=== PATIENT | female | born 1960 | race Caucasian/White ===

== ENCOUNTER 2017-01-04 22:07 | Emergency (ER) | payer BC ==
[~2017-01-04] VITALS: Ht 172.7 cm; Wt 127.0 kg
[~2017-01-04 22:07] MED LIST: ALPR.5T; ALPR1T PO; ASP325TEC; AZIT500T PO; BLOOD PRESSURE MED; BNZ20T; CEPH500C PO; CPR500T PO; DCS100C PO; ESTR1TAB24 PO; FRSM20T; FURO20TA4 PO; HYDR-2890 PO; IBP800T PO; LASIX; LOSA50TA6 PO; OXYC1TAB19 PO; OXYC1TAB87 PO; PNT40TEC; PNT40TEC PO; [UNRECOGNIZED DRUG - CODE]; [UNRECOGNIZED DRUG - CODE]
--- NOTE | 2017-01-04 22:45 | ED General ---
General Chief Complaint: General Problems/Pain Stated Complaint: NAUSEA, WEAKNESS SINCE TICK BITE Nursing Triage Note: PT REPORTS NAUSEA, LETHARGY, FEVERS, AND WEAKNESS FOR 3 DAYS. PT REPORTS SHE HAD A TICK BITE 2 WEEKS AGO. Nursing Sepsis Screen: Possible Sepsis Risk Source of Information: Patient Exam Limitations: No Limitations History of Present Illness Time Seen by Provider: 22:37 Initial Comments Patient presents to ER by private conveyance with a chief complaint of feeling under the weather for the past week with subjective fevers malaise fatigue no change in weight, occasional nausea without vomiting, constipation and about a week ago she pulled a tick off of herself. She had some itching for about a day but no rash. She's also had no appetite for the past for 5 days. She took a laxative yesterday but didn't get much out. She says the nausea is coming by sweats and the feeling of epigastric pain as well as feeling of aching pain like somebody punched her right and the middle of her sternum. She says she has no coronary history however for [address] Khan, cardiology did a heart catheter on her because she had a positive stress test but told her that her coronaries looked fine. Allergies and Home Medications Allergies Coded Allergies: Sulfa (Sulfonamide Antibiotics) (Verified Allergy, Unknown, 11/01/06) benazepril (Unverified Allergy, Unknown, SWELLING, 07/21/15) carbamazepine (Verified Allergy, Unknown, 11/01/06) cimetidine (Verified Allergy, Unknown, 11/01/06) codeine (Verified Allergy, Unknown, 11/01/06) enalapril (Unverified Allergy, Unknown, SWELLING, 07/21/15) metoprolol (Unverified Allergy, Unknown, SWELLING, RASH, 07/21/15) Home Medications Alprazolam 1 Mg Tablet, 1 TAB PO q8 PRN, (Reported) TAKES FOR ANXIETY Docusate Sodium 100 Mg Capsule, 100 MG PO BID, (Reported) Estradiol 1 Mg Tablet, 1 MG PO DAILY, (Reported) Furosemide 20 Mg Tablet, 1 EACH PO DAILY, (Reported) Ibuprofen 800 Mg Tab, 800 MG PO Q 6HRS NEEDED, (Reported) Losartan Potassium 50 Mg Tablet, 50 MG PO DAILY, (Reported) Oxycodone Hcl/Acetaminophen 1 Tab Tablet, 1 TAB PO Q 4HRS NEEDED, (Reported) Pantoprazole Sod 40 Mg Tab, 40 MG PO DAILY, (Reported) Constitutional: see HPI, chills, fever, malaise EENTM: No ear pain, No eye pain Respiratory: No cough, No short of breath Cardiovascular: No chest pain, No vascular heart diseas Gastrointestinal: abdominal pain (epigastric), constipation, No diarrhea, nausea, No vomiting Genitourinary: No discharge, dysuria, frequency, No hematuria, hesitancy, No incontinence : No Musculoskeletal: No back pain, No joint pain Skin: see HPI, pruritus, No rash Psychiatric/Neurological: Denies Headache, Denies Numbness Past Hqcwesq-Ksbtls-Peeogm Hx Patient Social History Alcohol Use: Rarely Uses Recreational Drug Use: No Smoking Status: Former Smoker Type Used: Cigarettes Former Smoker/When Quit: Jul 02, 2002 Recent Foreign Travel: No Contact w/Someone Who Travel: No Recent Infectious Disease Expo: No Recent Hopitalizations: Yes (HEART CATH 2 YRS AGO) Surgeries HX Surgeries: Yes (r/l knee, colon) Surgeries: Bladder Surgery, Eye Surgery, Hysterectomy, Orthopedic, Tubal Ligation Respiratory Hx Respiratory Disorders: Yes Respiratory Disorders: Emphysema Cardiovascular Hx Cardiac Disorders: Yes Cardiac Disorders: Hypertension Neurological Hx Neurological Disorders: No Reproductive System Hx Reproductive Disorders: No Sexually Transmitted Disease: No Genitourinary Hx Genitourinary Disorders: No Gastrointestinal Hx Gastrointestinal Disorders: Yes Gastrointestinal Disorders: Gastroesophageal Reflux Musculoskeletal Hx Musculoskeletal Disorders: Yes Musculoskeletal Disorders: Arthritis Endocrine Hx Endocrine Disorders: No HEENT HX ENT Disorders: No Cancer Hx Cancer: No Psychosocial Hx Psychiatric Problems: No Integumentary HX Skin/Integumentary Disorder: No Blood Transfusions Hx Blood Disorders: No Adverse Reaction to a Blood Tr: No Physical Exam Vital Signs Vital Sign - Last 12Hours 01/04/17 22:21 Temp 98.4 Pulse 135 Resp 18 B/P (MAP) 141/93 Pulse Ox 94 Capillary Refill : Less Than 3 Seconds General Appearance: No Apparent Distress, WD/WN Eyes: Bilateral Eye EOMI, Bilateral Eye Normal Inspection, Bilateral Eye PERRL HEENT: PERRL/EOMI, TMs Normal, Pharynx Normal Neck: Full Range of Motion, Normal Inspection, Supple Respiratory: Lungs Clear, Normal Breath Sounds Cardiovascular: Regular Rate, Rhythm, No Edema Gastrointestinal: Normal Bowel Sounds, Soft, Tenderness (epigastric), Other ( negative Prescott sign) Back: Normal Inspection, No CVA Tenderness, No Vertebral Tenderness Extremity: Normal Capillary Refill, No Calf Tenderness, No Pedal Edema Neurologic/Psychiatric: Alert, Oriented x3 Skin: Normal Color, Warm/Dry Progress/Results/Core Measures Results/Orders Lab Results Laboratory Tests Test 01/04/17 00:37 01/04/17 22:21 01/04/17 22:26 Range/Units Prothrombin Time 14.4 12.2-14.7 SEC INR Comment 1.2 0.8-1.4 Activated Partial Thromboplast Time 31 24-35 SEC Lactic Acid Level 1.08 0.50-2.00 MMOL/L Urine Color LESLEY H Urine Clarity SLIGHTLY CLOUDY Urine pH 6 5-9 Urine Specific Ruby 1.020 1.016-1.022 Urine Protein 2+ H NEGATIVE Urine Glucose (UA) NEGATIVE NEGATIVE Urine Ketones 1+ H NEGATIVE Urine Nitrite NEGATIVE NEGATIVE Urine Bilirubin 1+ H NEGATIVE Urine Urobilinogen 1 NORMAL MG/DL Urine Leukocyte Esterase 1+ H NEGATIVE Urine RBC (Auto) 1+ H NEGATIVE Urine RBC RARE /HPF Urine WBC 2-5 /HPF Urine Squamous Epithelial Cells 10-25 H /HPF Urine Crystals NONE /LPF Urine Bacteria FEW H /HPF Urine Casts NONE /LPF Urine Mucus LARGE H /LPF Urine Culture Indicated NO White Blood Count 4.3 4.3-11.0 10^3/uL Red Blood Count 4.88 4.35-5.85 10^6/uL Hemoglobin 13.2 11.5-16.0 G/DL Hematocrit 39 35-52 % Mean Corpuscular Volume 81 80-99 FL Mean Corpuscular Hemoglobin 27 25-34 PG Mean Corpuscular Hemoglobin Concent 34 32-36 G/DL Red Cell Distribution Width 15.1 H 10.0-14.5 % Platelet Count 92 L 130-400 10^3/uL Mean Platelet Volume 12.0 H 7.4-10.4 FL Neutrophils (%) (Auto) 82 H 42-75 % Lymphocytes (%) (Auto) 10 L 12-44 % Monocytes (%) (Auto) 8 0-12 % Eosinophils (%) (Auto) 0 0-10 % Basophils (%) (Auto) 1 0-10 % Neutrophils # (Auto) 3.5 1.8-7.8 X 10^3 Lymphocytes # (Auto) 0.4 L 1.0-4.0 X 10^3 Monocytes # (Auto) 0.3 0.0-1.0 X 10^3 Eosinophils # (Auto) 0.0 0.0-0.3 10^3/uL Basophils # (Auto) 0.0 0.0-0.1 10^3/uL Sodium Level 132 L 135-145 MMOL/L Potassium Level 3.5 L 3.6-5.0 MMOL/L Chloride Level 98 98-107 MMOL/L Carbon Dioxide Level 19 L 21-32 MMOL/L Anion Gap 15 H 5-14 MMOL/L Blood Urea Nitrogen 10 7-18 MG/DL Creatinine 0.77 0.60-1.30 MG/DL Estimat Glomerular Filtration Rate > 60 BUN/Creatinine Ratio 13 Glucose Level 174 H 70-105 MG/DL Calcium Level 8.3 L 8.5-10.1 MG/DL Magnesium Level 1.4 L 1.8-2.4 MG/DL Total Bilirubin 1.6 H 0.1-1.0 MG/DL Aspartate Amino Transf (AST/SGOT) 50 H 5-34 U/L Alanine Aminotransferase (ALT/SGPT) 57 H 0-55 U/L Alkaline Phosphatase 87 40-136 U/L Troponin I < 0.30 <0.30 NG/ML C-Reactive Protein High Sensitivity 14.39 H 0.00-0.50 MG/DL Total Protein 6.8 6.4-8.2 GM/DL Albumin 3.7 3.2-4.5 GM/DL My Orders Orders - ISABEL DOWNEY Cbc With Automated Diff (01/04/17 22:46) Comprehensive Metabolic Panel (01/04/17 22:46) Hs C Reactive Protein (01/04/17 22:46) Lactic Acid Analyzer (01/04/17 22:46) Magnesium (01/04/17 22:46) Troponin I (01/04/17 22:46) Ua Culture If Indicated (01/04/17 22:46) Chest Pa/Lat (2 View) (01/04/17 22:46) Abdomen/Kub 1view (01/04/17 22:46) Saline Lock/Iv-Start (01/04/17 22:46) Ns Iv 1000 Ml (Sodium Chloride 0.9%) (01/04/17 22:46) Ondansetron Injection (Zofran Injectio (01/04/17 23:00) Ekg Tracing (01/04/17 23:01) Blood Culture (01/04/17 23:50) Sputum Culture (01/04/17 23:50) Protime With Inr (01/04/17 23:50) Partial Thromboplastin Time (01/04/17 23:50) Saline Lock/Iv-Start (01/04/17 23:50) Vital Signs Adult Sepsis Patie Q1HR (01/04/17 23:50) Remove Rings In Anticipation O (01/04/17 23:50) Ct Abdomen/Pelvis Wo (01/05/17 00:01) Potassium Chloride (Tablet) (K Dur Table (01/05/17 00:45) Magnesium Oxide Tablet (Mag Ox Tablet) (01/05/17 00:45) Medications Given in ED Current Medications Medications Dose Ordered Sig/Autumn Route Start Time Stop Time Status Last Admin Dose Admin Magnesium Oxide 400 mg ONCE ONCE PO 01/05/17 00:45 01/05/17 00:46 DC 01/05/17 01:17 400 MG Ondansetron HCl 4 mg ONCE ONCE IVP 01/04/17 23:00 01/04/17 23:01 DC 01/04/17 23:06 4 MG Potassium Chloride 20 meq ONCE ONCE PO 01/05/17 00:45 01/05/17 00:46 DC 01/05/17 01:17 20 MEQ Sodium Chloride 1,000 ml @ 0 mls/hr Q0M ONCE IV 01/04/17 22:46 01/04/17 22:50 DC 01/04/17 23:06 1,000 MLS/HR Vital Signs/I&O Vital Sign - Last 12Hours 01/04/17 22:21 Temp 98.4 Pulse 135 Resp 18 B/P (MAP) 141/93 Pulse Ox 94 Blood Pressure Mean: 109 Progress Note #1: Time: 23:00 Progress Note Heart catheter was from 2006 was normal with an EF of 60%. She is postmenopausal since then so cannot rule out cardiac. We'll obtain EKG and troponin as well as a chest x-ray. We'll workup for epigastric pain by getting a urinalysis looking for blood work signs of inflammation or infection. If nothing is specific we may get a CAT scan. Progress Note #2: Time: 23:49 Progress Note Patient was a nonspecific symptoms and on lab if she has elevated liver enzymes and bilirubin as well as epigastric pain. We'll get a CT abdomen pelvis. Urine was normal. Platelets are little bit low as well. Concern for hepatitis, subacute? Will have a lactate and blood cultures. Progress Note #3: Time: 01:35 Progress Note Patient's feeling better after the fluids and Zofran. She has CT scan with unremarkable findings. This looks like it could be viral gastritis which may be causing her very marginal elevation in liver enzymes. There is no synthetic dysfunction. We'll give her some Zofran and instructions for oral rehydration and have her follow-up early next week with her primary care physician. ECG Initial ECG Impression Date: Jan 04, 2017 Initial ECG Impression Time: 23:09 Initial ECG Rate: 102 Initial ECG Rhythm: S.Tach Initial ECG Intervals: Normal Initial ECG Impression: Nonspecific Changes Initial ECG Comparisson: Unchanged Comment No T-wave elevation or depression. Diagnostic Imaging Diagonstic Imaging: Xray Plain Films/CT/US/NM/MRI: chest Comments No acute cardiopulmonary processes noted. Reviewed: Reviewed by Me Departure Impression Impression: Primary Impression: Gastritis Qualified Codes: K29.00 - Acute gastritis without bleeding Additional Impressions: Elevated liver enzymes Nausea and vomiting Qualified Codes: R11.2 - Nausea with vomiting, unspecified Disposition: 01 HOME, SELF-CARE Condition: Improved Departure-Patient Inst. Decision time for Depature: 01:37 Referrals: NAINA LOVE MD (PCP/Family) Primary Care Physician Patient Instructions: Viral Gastroenteritis, Adult (DC) Add. Discharge Instructions: You have nonspecific inflammation of your stomach which is causing your nausea. This may also be the cause of your liver enzymes being elevated. I would recommend that early next week you follow up with your primary care physician to close the loop on these findings. In the meanwhile we will give you some Zofran to be used every 6 hours under the tongue as needed for nausea or vomiting. Take at the first sign of nausea. Drink plenty of water or half strength Gatorade. If you're unable to maintain your oral intake or you start having new or worsening symptoms such as high fevers I would like you to come back to the ER. All discharge instructions reviewed with patient and/or family. Voiced understanding. Scripts Ondansetron (Ondansetron Odt) 4 Mg Tab.rapdis 4 MG PO Q6H Y for NAUSEA/VOMITING, #20 TAB 0 Refills Prov: ISABEL DOWNEY 01/05/17 Copy Copies To 1: NAINA LOVE MD, TITUS J Jan 04, 2017 22:44
[2017-01-04 22:56] LABS: BASOPHILS % (AUTO) 1 % (0-10); EOSINOPHILS % (AUTO) 0 % (0-10); LYMPHOCYTES # (AUTO) 0.4 X 10^3 (1.0-4.0); LYMPHOCYTES % (AUTO) 10 % (12-44); MEAN CORPUSCULAR HEMOGLOBIN 27 PG (25-34); MEAN CORPUSCULAR HGB CONC 34 G/DL (32-36); MEAN CORPUSCULAR VOLUME 81 FL (80-99); MONOCYTES # (AUTO) 0.3 X 10^3 (0.0-1.0); MONOCYTES % (AUTO) 8 % (0-12); NEUTROPHILS # (AUTO) 3.5 X 10^3 (1.8-7.8); NEUTROPHILS % (AUTO) 82 % (42-75); PLATELET COUNT 92 10^3/uL (130-400); RED BLOOD COUNT 4.88 10^6/uL (4.35-5.85); RED CELL DISTRIBUTION WIDTH 15.1 % (10.0-14.5); WHITE BLOOD COUNT 4.3 10^3/uL (4.3-11.0)
[2017-01-04 22:58] LABS: KETONES,URINE 1+ (NEGATIVE); LEUKOCYTE ESTERASE ,URINE 1+ (NEGATIVE); NITRITE,URINE NEGATIVE (NEGATIVE); PH,URINE 6 (5-9); PROTEIN,URINE 2+ (NEGATIVE); UROBILINOGEN,URINE 1 MG/DL (NORMAL)
[2017-01-04 23:05] LABS: BILIRUBIN,URINE 1+ (NEGATIVE)
[2017-01-04] MEDS: NS IV 1000 ML 1,000 ML IV ONE (23:06)
[2017-01-04] MEDS: ONDANSETRON 4 MG/2 ML (SDV) Z0FRAN IVP ONE (23:06)
[2017-01-04 23:10] LABS: ALANINE AMINOTRANSFERASE 57 U/L (0-55); ALBUMIN 3.7 GM/DL (3.2-4.5); ANION GAP 15 MMOL/L (5-14); ASPARTATE AMINO TRANSFERASE 50 U/L (5-34); BILIRUBIN,TOTAL 1.6 MG/DL (0.1-1.0); BLOOD UREA NITROGEN 10 MG/DL (7-18); BUN/CREATININE RATIO 13; CALCIUM 8.3 MG/DL (8.5-10.1); CARBON DIOXIDE 19 MMOL/L (21-32); CHLORIDE 98 MMOL/L (98-107); CREATININE SERUM 0.77 MG/DL (0.60-1.30); GFR ESTIMATED > 60; GLUCOSE 174 MG/DL (70-105); MAGNESIUM 1.4 MG/DL (1.8-2.4); POTASSIUM 3.5 MMOL/L (3.6-5.0); SODIUM 132 MMOL/L (135-145); TOTAL PROTEIN 6.8 GM/DL (6.4-8.2); hs C REACTIVE PROTEIN 14.39 MG/DL (0.00-0.50)
[2017-01-04 23:16] LABS: TROPONIN I < 0.30 NG/ML (<0.30)
[2017-01-05 00:54] LABS: INR 1.2 (0.8-1.4); PROTHROMBIN TIME PATIENT 14.4 SEC (12.2-14.7)
[2017-01-05] MEDS: MAGNESIUM OXIDE (MAG-OX)400 MG TAB PO ONE (01:17)
[2017-01-05] MEDS: KCL 20 MEQ TAB (K-DUR) PO ONE (01:17)
[2017-01-05] MEDS ORDERED: ONDA4TAB11 PO (01:39)
[2017-01-05] MEDS: RX-ONDANSETRON 4 MG ODT (ZOFRAN) PPK #4 PO STA (01:42)
[2017-01-05 01:48] VITALS: BP 136/80
--- NOTE | 2017-01-05 06:56 | Diagnostic Imaging Report ---
PROCEDURE: CT abdomen and pelvis without contrast. TECHNIQUE: Multiple contiguous axial images were obtained through the abdomen and pelvis without the use of intravenous contrast. INDICATION: Nausea. Lethargy. Fevers. Weakness. COMPARISON: CT angio chest dated 11/01/2016 FINDINGS: Included views of the lung bases are clear. CT abdomen: Normal appendix is identified. Small bowel loops are nondistended. Liver is diffusely hypodense consistent with background of hepatic steatosis. Otherwise, the liver, kidneys, adrenal glands, spleen, and pancreas have an unremarkable noncontrast CT appearance. There is no loculated fluid collection, free fluid, nor free air within the abdomen. No abnormal mesenteric or retroperitoneal adenopathy is seen. There is moderate calcified aortic and arterial atherosclerosis. Bony structures show no acute abnormalities. Fat-containing periumbilical hernia is noted. Ostia measures 2.[address] pelvis: Urinary bladder is unopacified. No calculi are seen within urinary bladder. There is no loculated fluid collection, free fluid, nor free air within the pelvis. No abnormal lymph nodes are seen. Bony structures show no acute abnormalities. IMPRESSION: 1. No acute abnormalities within the abdomen or pelvis. 2. Hepatic steatosis. 3. Fat containing periumbilical hernia. 4. Moderate calcified aortic and arterial atherosclerosis. Correlation for risk factors is recommended. Dictated by: Dictated on workstation # [id number]
--- NOTE | 2017-01-05 07:33 | Diagnostic Imaging Report ---
Supine view of the abdomen. INDICATION: Nausea and weakness. FINDINGS: Calcifications in the pelvis are likely phleboliths. In the upper abdomen, calcifications appears to relate to costocartilage ossification. No dilated bowel loops are seen. No soft tissue mass is identified. IMPRESSION: Nonspecific bowel gas pattern. Dictated by: Dictated on workstation # [id number]
--- NOTE | 2017-01-05 07:35 | Diagnostic Imaging Report ---
PA and lateral views of the chest. INDICATION: Nausea. FINDINGS: The left lung base demonstrates minimal atelectasis, otherwise the lungs are clear. The heart size is normal. No effusion or pneumothorax. Mediastinum and cassandra appear unremarkable. IMPRESSION: Minimal left basilar atelectasis. Dictated by: Dictated on workstation # [id number]
== END 2017-01-05 01:47 | disposition home or self-care (01) ==
LOC: EDUNIT# 22:07 → ER 22:09
DX: K29.00 Acute gastritis without bleeding (principal); R94.5 Abnormal results of liver function studies; M19.90 Unspecified osteoarthritis, unspecified site; K21.9 Gastro-esophageal reflux disease without esophagitis; I10 Essential (primary) hypertension; J43.9 Emphysema, unspecified; Z90.710 Acquired absence of both cervix and uterus; Z90.721 Acquired absence of ovaries, unilateral; Z98.51 Tubal ligation status; Z87.891 Personal history of nicotine dependence; Z98.890 Other specified postprocedural states
CPT/HCPCS: 36415; 71020; 74000; 74176; 80053; 81000; 83605; 83735; 84484; 85025; 85610; 85730; 86141; 87040; 93005

== ENCOUNTER → 2017-01-08 | Outpatient (CLI) | payer BC ==
[~2017-01-08] MED LIST changes: +ONDA4TAB11 PO
[2017-01-08 15:57] LABS: BASOPHILS # (AUTO) 0.3 10^3/uL (0.0-0.1); BASOPHILS % (AUTO) 4 % (0-10); EOSINOPHILS % (AUTO) 1 % (0-10); LYMPHOCYTES # (AUTO) 4.4 X 10^3 (1.0-4.0); LYMPHOCYTES % (AUTO) 55 % (12-44); MEAN CORPUSCULAR HEMOGLOBIN 27 PG (25-34); MEAN CORPUSCULAR HGB CONC 34 G/DL (32-36); MEAN CORPUSCULAR VOLUME 81 FL (80-99); MEAN PLATELET VOLUME 12.1 FL (7.4-10.4); MONOCYTES # (AUTO) 1.4 X 10^3 (0.0-1.0); MONOCYTES % (AUTO) 17 % (0-12); NEUTROPHILS # (AUTO) 1.9 X 10^3 (1.8-7.8); NEUTROPHILS % (AUTO) 24 % (42-75); PLATELET COUNT 100 10^3/uL (130-400); RED BLOOD COUNT 4.45 10^6/uL (4.35-5.85); RED CELL DISTRIBUTION WIDTH 15.4 % (10.0-14.5); WHITE BLOOD COUNT 7.9 10^3/uL (4.3-11.0)
[2017-01-08 16:20] LABS: ALANINE AMINOTRANSFERASE 55 U/L (0-55); ALBUMIN 3.2 GM/DL (3.2-4.5); ANION GAP 8 MMOL/L (5-14); ASPARTATE AMINO TRANSFERASE 53 U/L (5-34); BILIRUBIN,TOTAL 0.8 MG/DL (0.1-1.0); BLOOD UREA NITROGEN 9 MG/DL (7-18); BUN/CREATININE RATIO 14; CALCIUM 8.3 MG/DL (8.5-10.1); CARBON DIOXIDE 25 MMOL/L (21-32); CHLORIDE 102 MMOL/L (98-107); CREATININE SERUM 0.64 MG/DL (0.60-1.30); GFR ESTIMATED > 60; GLUCOSE 142 MG/DL (70-105); POTASSIUM 3.7 MMOL/L (3.6-5.0); SODIUM 135 MMOL/L (135-145); TOTAL PROTEIN 6.1 GM/DL (6.4-8.2)
[2017-01-08 16:39] LABS: THYROID STIMULATING HORMONE 0.24 UIU/ML (0.35-4.94)
[2017-01-08 16:53] LABS: BAND NEUTROPHILS 2 %; BASOPHILS % (MANUAL) 0 %; EOSINOPHILS % (MANUAL) 0 %; LYMPHOCYTES % (MANUAL) 73 %; NEUTROPHILS % (MANUAL) 25 %
[2017-01-08 16:55] LABS: ERYTHROCYTE SEDIMENTATION RATE 8 MM/HR (0-30)
== END ==
LOC: LAB 15:38
PROVIDERS: ATTEND Family Medicine
DX: M25.519 Pain in unspecified shoulder (principal)
CPT/HCPCS: 36415; 80053; 84443; 85007; 85027; 85652; 86038; 86430

== ENCOUNTER → 2017-02-19 | Outpatient (CLI) | payer BC | LOC: LABNPT 10:42 | PROVIDERS: ATTEND Nurse Practitioner Family | DX: J34.89 Other specified disorders of nose and nasal sinuses (principal) | CPT/HCPCS: 87070; 87205 ==

== ENCOUNTER → 2017-11-01 | Outpatient (CLI) | payer BC ==
--- NOTE | 2017-11-01 13:06 | Diagnostic Imaging Report ---
INDICATION: Fall yesterday with pain to the lateral side of the left foot. TIME OF EXAM: 12:30 p.m. FINDINGS: Three views of the left foot were obtained. The metatarsals and phalanges appear intact. No fractures are seen. The mid foot and hind foot are unremarkable apart from a small plantar calcaneal spur. IMPRESSION: No acute bony abnormality is detected. Dictated by: Dictated on workstation # [id number]
== END ==
LOC: RAD 11:52
PROVIDERS: ATTEND Nurse Practitioner Family
DX: M79.672 Pain in left foot (principal); W19.XXXA Unspecified fall, initial encounter
CPT/HCPCS: 73630

== ENCOUNTER → 2019-07-08 | Outpatient (CLI) | payer BC ==
--- NOTE | 2019-07-08 14:05 | Diagnostic Imaging Report ---
INDICATION: Routine screening. COMPARISON: Comparison is made with prior mammogram from 11/27/2011. 2-D and 3-D bilateral screening mammography was performed. The current study was also evaluated with a Computer Aided Detection (CAD) system. 3-D tomosynthesis was also performed and reviewed. FINDINGS: Both breasts are heterogeneously dense, limiting the sensitivity of mammography. No dominant mass or malignant-appearing microcalcifications are seen. There are occasional benign calcifications. Axillae are unremarkable. IMPRESSION: No mammographic features suspicious for malignancy are identified. ACR BI-RADS Category 2: Benign findings. Result letter will be mailed to the patient. Note: At least 10% of breast cancer is not imaged by mammography. Dictated by: Dictated on workstation # [id number]
== END ==
LOC: RAD 10:09
PROVIDERS: ATTEND Family Medicine
DX: Z12.31 Encounter for screening mammogram for malignant neoplasm of breast (principal)
CPT/HCPCS: 77067

== ENCOUNTER 2020-07-17 16:29 | Inpatient (IN) | payer BC ==
[~2020-07-17] VITALS: Ht 172 cm; Wt 128.8 kg
[2020-07-17] MEDS ORDERED: NS IV 1000 ML 1,000 ML ONE (16:50)
--- NOTE | 2020-07-17 16:57 | ED Respiratory ---
General Chief Complaint: Cough/Cold/Flu Symptoms Stated Complaint: COVID POSITIVE/SOB/UNABLE TO EAT Source: patient Exam Limitations: no limitations (KAROLINE BELL MD) History of Present Illness Date Seen by Provider: Jul 17, 2020 Time Seen by Provider: 16:50 Initial Comments Patient is a 60-year-old female who presents to the emergency department today with a chief complaint of generalized fatigue, malaise, shortness of breath and cough. Patient states that she started getting symptoms of Covid she believes around 02 July. She states her tested positive for coronavirus about 04 July. Patient states she did not get her positive test until about 13 July. Patient endorses loss of taste or change in taste everything tastes "salty". Patient states that she is not really had much fever. She denies sore throat, runny nose, congestion. She states that her chest is felt tight with her shortness of breath and she has had a dry nonproductive cough until today when she feels like it is loosened up a little bit. Patient states that she has had some vomiting. She states that this is mostly posttussive. She also endorses diarrhea anytime she tries to eat or drink anything. She denies any change in urination, dysuria, urgency or frequency. She states sick contact at home as her and grandchildren. Patient recently finished up a Z-Rigoberto as well as prednisone today. This was prescribed by her family doctor. All other review of systems reviewed and negative except as stated. Timing/Duration: getting worse Prior Episodes/Possible Cause: illness exposure Modifying Factors: Improves With Antibiotics, Improves With Coughing Associated Symptoms: cough, muscle aches, shortness of breath (KAROLINE BELL MD) Allergies and Home Medications Allergies Coded Allergies: Sulfa (Sulfonamide Antibiotics) (Verified Allergy, Unknown, 11/01/06) benazepril (Unverified Allergy, Unknown, SWELLING, 07/21/15) carbamazepine (Verified Allergy, Unknown, 11/01/06) cimetidine (Verified Allergy, Unknown, 11/01/06) codeine (Verified Allergy, Unknown, 11/01/06) enalapril (Unverified Allergy, Unknown, SWELLING, 07/21/15) metoprolol (Unverified Allergy, Unknown, SWELLING, RASH, 07/21/15) Home Medications Alprazolam 1 Mg Tablet, 1 TAB PO q8 PRN, (Reported) TAKES FOR ANXIETY Docusate Sodium 100 Mg Capsule, 100 MG PO BID, (Reported) Estradiol 1 Mg Tablet, 1 MG PO DAILY, (Reported) Furosemide 20 Mg Tablet, 1 EACH PO DAILY, (Reported) Ibuprofen 800 Mg Tab, 800 MG PO Q 6HRS NEEDED, (Reported) Losartan Potassium 50 Mg Tablet, 50 MG PO DAILY, (Reported) Ondansetron 4 Mg Tab.rapdis, 4 MG PO Q6H PRN for NAUSEA/VOMITING Prescribed by: ISABEL DOWNEY on 01/05/17 0139 Oxycodone Hcl/Acetaminophen 1 Tab Tablet, 1 TAB PO Q 4HRS NEEDED, (Reported) Pantoprazole Sod 40 Mg Tab, 40 MG PO DAILY, (Reported) Patient Home Medication List Home Medication List Reviewed: Yes (KAROLINE BELL MD) Review of Systems Review of Systems Constitutional: see HPI EENTM: no symptoms reported Respiratory: cough, dyspnea on exertion, phlegm (slight amount), short of breath Cardiovascular: other (chest "tightness") Gastrointestinal: diarrhea, loss of appetite, nausea, vomiting Genitourinary: no symptoms reported Musculoskeletal: muscle cramps Skin: no symptoms reported Psychiatric/Neurological: Anxiety (KAROLINE BELL MD) All Other Systems Reviewed Negative Unless Noted: Yes (KAROLINE BELL MD) Past Bzbiwwt-Tntilk-Nrffst Hx Patient Social History Type Used: Cigarettes Former Smoker, Quit: Dec 18, 1999 Recent Hopitalizations: Yes (HEART CATH 2 YRS AGO) (KAROLINE BELL MD) Past Medical History Surgeries: Yes (r/l knee, colon) Bladder Surgery, Eye Surgery, Hysterectomy, Orthopedic, Tubal Ligation Respiratory: Yes Emphysema Cardiac: Yes Hypertension Neurological: No Reproductive Disorders: No Sexually Transmitted Disease: No Genitourinary: No Gastrointestinal: Yes Gastroesophageal Reflux Musculoskeletal: Yes Arthritis Endocrine: No Cancer: No Psychosocial: No Integumentary: No Blood Disorders: No Adverse Reaction/Blood Tranf: No (KAROLINE BELL MD) Physical Exam Vital Signs - First Documented 07/17/20 07/17/20 16:40 17:32 Temp 37.0 Pulse 87 Resp 20 B/P (MAP) 167/88 (114) Pulse Ox 85 O2 Delivery Room Air O2 Flow Rate 1.00 (SWETA MCDANIEL) Capillary Refill : (KAROLINE BELL MD) Height: 5'8.00" Weight: 280lbs. 0.0oz. 127.652751bp; 38.39 BMI Method:Stated General Appearance: WD/WN, mild distress Eyes: Bilateral Eye Normal Inspection, Bilateral Eye PERRL, Bilateral Eye EOMI HEENT: normal ENT inspection, pharynx normal Neck: non-tender, full range of motion, supple, normal inspection Respiratory: no respiratory distress, no accessory muscle use, other (Slightly tachypneic, faint crackles noted at the right greater than left base posteriorly) Cardiovascular: regular rate, rhythm, no murmur Gastrointestinal: normal bowel sounds, non tender, soft Extremities: non-tender, normal inspection, no pedal edema, normal capillary refill (Brisk capillary refill) Neurologic/Psychiatric: patternmaker helper II-XII nml as tested, no motor/sensory deficits, alert, normal mood/affect, oriented x 3 Skin: normal color, warm/dry (KAROLINE BELL MD) Focused Exam Lactate Level 07/17/20 16:45: Lactic Acid Level 2.15*H (SWETA MCDANIEL) Lactic Acid Level Laboratory Tests Test 07/17/20 16:45 Lactic Acid Level 2.15 MMOL/L (0.50-2.00) *H (SWETA MCDANIEL) Progress/Results/Core Measures Suspected Sepsis SIRS Temperature: Pulse: Respiratory Rate: Laboratory Tests 07/17/20 16:45: Blood Pressure / Mean: 07/17/20 16:45: Laboratory Tests 07/17/20 16:45: (KAROLINE BELL MD) Results/Orders Lab Results Laboratory Tests Test 07/17/20 16:45 Range/Units White Blood Count 4.4 4.3-11.0 10^3/uL Red Blood Count 4.61 3.80-5.11 10^6/uL Hemoglobin 12.5 11.5-16.0 g/dL Hematocrit 38 35-52 % Mean Corpuscular Volume 83 80-99 fL Mean Corpuscular Hemoglobin 27 25-34 pg Mean Corpuscular Hemoglobin Concent 33 32-36 g/dL Red Cell Distribution Width 14.1 10.0-14.5 % Platelet Count 157 130-400 10^3/uL Mean Platelet Volume 11.0 9.0-12.2 fL Immature Granulocyte % (Auto) 0 % Neutrophils (%) (Auto) 84 H 42-75 % Lymphocytes (%) (Auto) 11 L 12-44 % Monocytes (%) (Auto) 5 0-12 % Eosinophils (%) (Auto) 0 0-10 % Basophils (%) (Auto) 0 0-10 % Neutrophils # (Auto) 3.7 1.8-7.8 10^3/uL Lymphocytes # (Auto) 0.5 L 1.0-4.0 10^3/uL Monocytes # (Auto) 0.2 0.0-1.0 10^3/uL Eosinophils # (Auto) 0.0 0.0-0.3 10^3/uL Basophils # (Auto) 0.0 0.0-0.1 10^3/uL Immature Granulocyte # (Auto) 0.0 0.0-0.1 10^3/uL D-Dimer 1.14 H 0.00-0.49 UG/ML Sodium Level 135 135-145 MMOL/L Potassium Level 4.0 3.6-5.0 MMOL/L Chloride Level 102 98-107 MMOL/L Carbon Dioxide Level 21 21-32 MMOL/L Anion Gap 12 5-14 MMOL/L Blood Urea Nitrogen 8 7-18 MG/DL Creatinine 0.70 0.60-1.30 MG/DL Estimat Glomerular Filtration Rate > 60 BUN/Creatinine Ratio 11 Glucose Level 210 H 70-105 MG/DL Lactic Acid Level 2.15 *H 0.50-2.00 MMOL/L Calcium Level 8.2 L 8.5-10.1 MG/DL Corrected Calcium 8.5 8.5-10.1 MG/DL Total Bilirubin 0.8 0.1-1.0 MG/DL Aspartate Amino Transf (AST/SGOT) 19 5-34 U/L Alanine Aminotransferase (ALT/SGPT) 19 0-55 U/L Alkaline Phosphatase 70 40-136 U/L C-Reactive Protein High Sensitivity 9.00 H 0.00-0.50 MG/DL Total Protein 6.6 6.4-8.2 GM/DL Albumin 3.6 3.2-4.5 GM/DL Procalcitonin 0.03 <0.10 NG/ML (SWETA MCDANIEL) Vital Signs/I&O 07/17/20 07/17/20 16:40 17:32 Temp 37.0 Pulse 87 Resp 20 B/P (MAP) 167/88 (114) Pulse Ox 85 O2 Delivery Room Air Nasal Cannula O2 Flow Rate 1.00 (SWETA MCDANIEL) Vital Signs/I&O Capillary Refill : (KAROLINE BELL MD) Progress Note : Time: 16:59 Progress Note 60-year-old female presents to the emergency room Covid positive with shortness of breath. Room air saturations were noted to be 85% after the patient was ambulatory to the room. She was quite dyspneic but able to speak in complete sentences. Patient evaluation today includes a physical exam, CBC, Chem-12, CRP, D-dimer, procalcitonin, lactic acid, blood cultures, chest x-ray. Patient has been sick for approximately 10 to 14 days. She does look mildly dehydrated on physical exam. Blood pressure is within normal limits. Patient is not tachycardic but as stated was quite hypoxic on arrival. Placed patient was placed on 2 to 3 L of oxygen per nasal cannula and is satting 94% after placement. Patient will be fluid resuscitated with 1 L of normal saline. Disposition and further management to be determined after laboratory evaluation and chest x-ray evaluation. (KAROLINE BELL MD) Progress Note : Progress Note 1800 Assumed care of patient from Dr. Bell. No requests at this time, awaiting CXR. 184 CXR reviewed. Discussed with Dr. Vital, plan to admit. Patient complains of nausea, will give Zofran 8 mg IV. Stable VS, SaO2 96% on 3 L O2 per NC. (SWETA MCDANIEL) Diagnostic Imaging Diagonstic Imaging: Xray Plain Films/CT/US/NM/MRI: chest Comments NAME: YIFAN KELLER [facility] REC#: [id number] PT STATUS: REG ER : 1960 PHYSICIAN: KAROLINE BELL MD ADMIT DATE: 07/17/20/ER Signed Date of Exam:07/17/20 CHEST 1 VIEW, AP/PA ONLY EXAMINATION: Chest 1 view. HISTORY: Shortness of breath. Covid positive. COMPARISON: 01/04/2017. FINDINGS: The lung volumes are normal. Patchy opacities are visualized in the mid and lower lungs, bilaterally. No large pleural effusion or pneumothorax is seen. The cardiomediastinal silhouette is normal in size and contour. No acute osseous abnormality is seen. IMPRESSION: Patchy opacities in the mid and lower lungs, bilaterally, consistent with a history of Covid infection. No pleural effusion. Dictated by: Dictated on workstation # [id number] Dict: 07/17/201800 Trans: 07/17/201806 [facility] [id number] Interpreted by: BLAKE JOINER DO Electronically signed by: BLAKE JOINER DO 07/17/201806 Reviewed: Reviewed by Me (SWETA MCDANIEL) Departure Impression Primary Impression: COVID-19 Additional Impressions: Hypoxia Shortness of breath Hyperglycemia Disposition: ADMITTED INPATIENT Condition: Stable Admissions Decision to Admit Reason: Admit from ER (General) Decision to Admit/Date: Jul 17, 2020 Time/Decision to Admit Time: 17:30 (SWETA MCDANIEL) Departure-Patient Inst. Referrals: JOE BRAY MD (PCP/Family) Primary Care Physician KAROLINE BELL MD Jul 17, 2020 16:56 SWETA MCDANIEL Jul 17, 2020 18:32
[2020-07-17 16:58] LABS: BASOPHILS % (AUTO) 0 % (0-10); EOSINOPHILS % (AUTO) 0 % (0-10); HEMATOCRIT 38 % (35-52); HEMOGLOBIN 12.5 g/dL (11.5-16.0); LYMPHOCYTES # (AUTO) 0.5 10^3/uL (1.0-4.0); LYMPHOCYTES % (AUTO) 11 % (12-44); MEAN CORPUSCULAR HEMOGLOBIN 27 pg (25-34); MEAN CORPUSCULAR HGB CONC 33 g/dL (32-36); MEAN CORPUSCULAR VOLUME 83 fL (80-99); MONOCYTES # (AUTO) 0.2 10^3/uL (0.0-1.0); MONOCYTES % (AUTO) 5 % (0-12); NEUTROPHILS # (AUTO) 3.7 10^3/uL (1.8-7.8); NEUTROPHILS % (AUTO) 84 % (42-75); PLATELET COUNT 157 10^3/uL (130-400); WHITE BLOOD COUNT 4.4 10^3/uL (4.3-11.0)
[2020-07-17] MEDS ORDERED: NS IV 1000 ML 1,000 ML IV SCH (17:00)
[2020-07-17 17:14] LABS: ALBUMIN 3.6 GM/DL (3.2-4.5); CHLORIDE 102 MMOL/L (98-107); SODIUM 135 MMOL/L (135-145)
[2020-07-17 17:16] LABS: CALCIUM 8.2 MG/DL (8.5-10.1)
[2020-07-17 17:17] LABS: GLUCOSE 210 MG/DL (70-105); TOTAL PROTEIN 6.6 GM/DL (6.4-8.2)
[2020-07-17 17:18] LABS: BILIRUBIN,TOTAL 0.8 MG/DL (0.1-1.0); CARBON DIOXIDE 21 MMOL/L (21-32)
[2020-07-17 17:20] LABS: ALKALINE PHOSPHATASE 70 U/L (40-136)
[2020-07-17 17:21] LABS: GFR ESTIMATED > 60
[2020-07-17 17:22] LABS: BUN/CREATININE RATIO 11
[2020-07-17 17:23] LABS: ALANINE AMINOTRANSFERASE 19 U/L (0-55)
--- NOTE | 2020-07-17 18:05 | Diagnostic Imaging Report ---
EXAMINATION: Chest 1 view. HISTORY: Shortness of breath. Covid positive. COMPARISON: 01/04/2017. FINDINGS: The lung volumes are normal. Patchy opacities are visualized in the mid and lower lungs, bilaterally. No large pleural effusion or pneumothorax is seen. The cardiomediastinal silhouette is normal in size and contour. No acute osseous abnormality is seen. IMPRESSION: Patchy opacities in the mid and lower lungs, bilaterally, consistent with a history of Covid infection. No pleural effusion. Dictated by: Dictated on workstation # [id number]
--- NOTE | 2020-07-17 18:51 | NUR ---
talked with pt's family after permission from the pt.
--- NOTE | 2020-07-17 19:01 | NUR ---
report given to laquita.
[2020-07-17] MEDS ORDERED: NS IV 500 ML 500 ML IV SCH (19:15)
[2020-07-17] MEDS ORDERED: ONDANSETRON 4 MG/2 ML (SDV) Z0FRAN IVP ONE (19:30)
--- NOTE | 2020-07-17 20:18 | NUR ---
YIFAN KELLER admitted to room 433-1, with an admitting diagnosis of covid +/hypoxia, on 07/17/20 from ER via [facility] (formerly [facility] accompanied by staff.YIFAN KELLER introduced to surroundings, call light, bed controls, phone, TV, temperature control, lights, meal times, smoking policy, visitor policy, side rail policy, bathrooms and showers. Patient Rights given to patient in the handbook. YIFAN KELLER verbalizes understanding that [facility] is not responsible for the loss or damage to any personal effects or valuables that are kept in the patients posession during their hospitalization.
[2020-07-17 20:32] VITALS: BP 162/80
[2020-07-17] MEDS ORDERED: RT-ALBUTEROL INHALER HFA (VENTOLIN HFA) 18 GM IH PRN ×2 (21:00→22:15)
[2020-07-17] MEDS ORDERED: ACETAMINOPHEN 325 MG TABLET PO PRN (21:00)
[2020-07-17] MEDS ORDERED: ONDANSETRON 4 MG/2 ML (SDV) Z0FRAN IVP PRN (21:00)
[2020-07-17] MEDS: NS IV 1000 ML 1,000 ML IV SCH (21:21)
[2020-07-17] MEDS: ENOXAPARIN 40 MG/0.4 ML (LOVENOX) SYR SC SCH (21:21)
--- NOTE | 2020-07-17 21:49 | NUR ---
Albuterol 4 puffs and q2 prn. IS TID.Initiate 02 to keep sats greater than 90%. RT to reassess or reevaluate in 72 hours or as needed. Addendum: 07/17/20 at 2150 by MARLENA VILLAGOMEZ RT Amended: Links added.
--- NOTE | 2020-07-17 22:22 | NUR ---
At 2200, this RN was in pt 433's room providing care. DERIC Lacy, knocked on the door to notify me this pt in room 428's bed alarm was going off, and pt was in the bathroom. I came into this pt's room and he was hunched over on the toilet breathing heavy. I reapplied his oxygen that was on 10 L, grabbed a vitals cart to check his spo2%, which was at 45%. I had JUN Wagner grab me a high flow NC, and I applied it to pt on 15 L, and his sats layton to 75%. I was able to get the pt back into bed, and we then applied an oxy mask at 10 L and pt calmed down, caught his breath, and his sats were fluctuating between 80%-85%. Ativan 2MG was given to pt, and a continuous pulse ox to monitor. PT is on comfort care, and once back into bed, I made sure pt was comfrotable and needs were met. Bed alarm set, and I reoriented pt multiple times to hit his red call light button if he needs to get out of bed. I moved a bedside commode next to pt's bed. Will continue to provide care as ordered.
[2020-07-18] VITALS (9 sets, daily range): BP systolic 135–172; BP diastolic 60–84
[2020-07-18] MEDS: dexAMETHasone 6 MG TAB (DECADRON) PO SCH (05:52)
[2020-07-18] MEDS: NS IV 1000 ML 1,000 ML IV SCH ×2 (05:52→17:14)
[2020-07-18 06:07] LABS: BASOPHILS % (AUTO) 0 % (0-10); EOSINOPHILS % (AUTO) 0 % (0-10); HEMATOCRIT 35 % (35-52); HEMOGLOBIN 11.4 g/dL (11.5-16.0); LYMPHOCYTES # (AUTO) 0.7 10^3/uL (1.0-4.0); LYMPHOCYTES % (AUTO) 16 % (12-44); MEAN CORPUSCULAR HEMOGLOBIN 27 pg (25-34); MEAN CORPUSCULAR HGB CONC 33 g/dL (32-36); MEAN CORPUSCULAR VOLUME 84 fL (80-99); MEAN PLATELET VOLUME 10.8 fL (9.0-12.2); MONOCYTES # (AUTO) 0.4 10^3/uL (0.0-1.0); MONOCYTES % (AUTO) 9 % (0-12); NEUTROPHILS # (AUTO) 3.4 10^3/uL (1.8-7.8); NEUTROPHILS % (AUTO) 74 % (42-75); PLATELET COUNT 154 10^3/uL (130-400); WHITE BLOOD COUNT 4.6 10^3/uL (4.3-11.0)
[2020-07-18 06:28] LABS: ALBUMIN 3.1 GM/DL (3.2-4.5); CHLORIDE 104 MMOL/L (98-107); POTASSIUM 3.5 MMOL/L (3.6-5.0); SODIUM 136 MMOL/L (135-145)
[2020-07-18 06:29] LABS: CALCIUM 7.6 MG/DL (8.5-10.1)
[2020-07-18 06:30] LABS: GLUCOSE 114 MG/DL (70-105); TOTAL PROTEIN 5.9 GM/DL (6.4-8.2)
[2020-07-18 06:31] LABS: CARBON DIOXIDE 22 MMOL/L (21-32)
[2020-07-18 06:32] LABS: BILIRUBIN,TOTAL 0.7 MG/DL (0.1-1.0)
[2020-07-18 06:34] LABS: ALKALINE PHOSPHATASE 62 U/L (40-136); CREATININE SERUM 0.61 MG/DL (0.60-1.30); GFR ESTIMATED > 60
[2020-07-18 06:35] LABS: BUN/CREATININE RATIO 16
[2020-07-18 06:37] LABS: ALANINE AMINOTRANSFERASE 18 U/L (0-55)
--- NOTE | 2020-07-18 06:39 | NUR ---
This PT notified this RN about having some neck pain at 0400 that went away shortly. At this time, pt is complaining of the same enck pain with some chest pain that feels like "pressure." This nurse notified Dr. Vital about this at 0640 and will perform a stat EKG. Will continue to provide care as ordered.
[2020-07-18] MEDS: RT-ALBUTEROL INHALER HFA (VENTOLIN HFA) 18 GM IH SCH ×4 (07:50→18:53)
[2020-07-18] MEDS: ENOXAPARIN 40 MG/0.4 ML (LOVENOX) SYR SC SCH ×2 (09:07→20:14)
--- NOTE | 2020-07-18 10:41 | History & Physical-Hospitalist ---
History of Present Illness HPI/Chief Complaint Pt is a 60yoCF with a PMH of HTN who presented to the ER due to weakness and shortness of breath. She states that her testedpositive for COVID on 07/04 after an exposure and work and she has been symptomatic since roughly 07/02 but really worsened over the last week. She was unable to take deep breaths and was so weak for couldn't even stand to take a shower. She tastes she lost her sense of taste as well. She has has sniffles,nasal congestion, and a sore throat as well. She ultimately was tested for COVID and was positive on 07/14. She was offered BAM but declined. She developed profound diarrhea and even some vomiting and felt she was getting dehydrated too. She has been unable to eat much over the last few days. This morning she reports feeling better. Breathing is easier but still on oxygen. She was also able to eat breakfast. Source: patient Date Seen 07/18/20 Time Seen by a Provider: 10:37 Attending Physician Kate Vital MD PCP Nancy Wolf MD Referring Physician Date of Admission Jul 17, 2020 at 18:00 Home Medications & Allergies Home Medications Reviewed patient Home Medication Reconciliation performed by pharmacy medication reconciliations cardiac cath technician and/or nursing. Patients Allergies have been reviewed. Allergies Allergies Coded Allergies Sulfa (Sulfonamide Antibiotics) (Verified Allergy, Unknown, 11/01/06) benazepril (Unverified Allergy, Unknown, SWELLING, 07/21/15) carbamazepine (Verified Allergy, Unknown, 11/01/06) cimetidine (Verified Allergy, Unknown, 11/01/06) codeine (Verified Allergy, Unknown, 11/01/06) enalapril (Unverified Allergy, Unknown, SWELLING, 07/21/15) metoprolol (Unverified Allergy, Unknown, SWELLING, RASH, 07/21/15) Past Ucwhedx-Atbbtg-Uxrmmw Hx Past Med/Social Hx: Reviewed Nursing Past Med/Soc Hx Patient Social History Marrital Status: Alcohol Use: Denies Use Recreational Drug Use: No Smoking Status: Former Smoker Former Smoker, Quit: Dec 18, 1999 Type Used: Cigarettes Recent Foreign Travel: No Contact w/other who traveled: No Recent Hopitalizations: Yes (HEART CATH 2 YRS AGO) Recent Infectious Disease Expo: No Past Medical History Surgeries: Bladder Surgery, Eye Surgery, Hysterectomy, Orthopedic, Tubal Ligation Cardiac: Hypertension Reproductive: No Sexually Transmitted Disease: No Gastrointestinal: Gastroesophageal Reflux Musculoskeletal: Arthritis History of Blood Disorders: No Adverse Reaction to Blood Baker: No Family History Reviewed Nursing Family Hx No Pertinent Family Hx Review of Systems Constitutional: No fever; malaise, weakness EENTM: see HPI Respiratory: see HPI Cardiovascular: No chest pain, No edema, No palpitations Gastrointestinal: see HPI, loss of appetite Genitourinary: no symptoms reported Musculoskeletal: muscle weakness Skin: no symptoms reported Psychiatric/Neurological: Anxiety Physical Exam Physical Exam Vital Signs Vital Signs - First Documented 07/17/20 07/17/20 16:40 17:32 Temp 37.0 Pulse 87 Resp 20 B/P (MAP) 167/88 (114) Pulse Ox 85 O2 Delivery Room Air O2 Flow Rate 1.00 Capillary Refill : Less Than 3 Seconds Height, Weight, BMI Height: 5'8.00" Weight: 280lbs. 0.0oz. 127.830210um; 43.53 BMI Method:Stated General Appearance: No Apparent Distress, Chronically ill, Obese HEENT: PERRL/EOMI, Moist Mucous Membranes; No Scleral Icterus (L), No Scleral Icterus (R) Neck: Normal Inspection, Supple Respiratory: Lungs Clear, No Accessory Muscle Use, No Respiratory Distress Cardiovascular: Regular Rate, Rhythm, No Murmur Gastrointestinal: Normal Bowel Sounds, Non Tender, Soft Extremity: Normal Capillary Refill, No Calf Tenderness, No Pedal Edema Neurologic/Psychiatric: Alert, Oriented x3, Normal Mood/Affect Results Results/Procedures Labs Laboratory Tests 07/17/20 16:45 07/18/20 05:52 Patient resulted labs reviewed. Imaging: Reviewed Imaging Report Imaging [facility] [place] NAME: YIFAN KELLER [facility] REC#: [id number] PT STATUS: REG ER : 1960 PHYSICIAN: KAROLINE BELL MD ADMIT DATE: 07/17/20/ER Signed Date of Exam:07/17/20 CHEST 1 VIEW, AP/PA ONLY EXAMINATION: Chest 1 view. HISTORY: Shortness of breath. Covid positive. COMPARISON: 01/04/2017. FINDINGS: The lung volumes are normal. Patchy opacities are visualized in the mid and lower lungs, bilaterally. No large pleural effusion or pneumothorax is seen. The cardiomediastinal silhouette is normal in size and contour. No acute osseous abnormality is seen. IMPRESSION: Patchy opacities in the mid and lower lungs, bilaterally, consistent with a history of Covid infection. No pleural effusion. Dictated by: Dictated on workstation # [id number] Dict: 07/17/201800 Trans: 07/17/201806 [facility] [id number] Interpreted by: BLAKE JOINER DO Electronically signed by: BLAKE JOINER DO 07/17/201806 Assessment/Plan Admission Diagnosis Acute hypoxic respiratory failure due to COVID19 Admission Status: Inpatient Order (span 2 midnights) Reason for Inpatient Admission: see below Assessment and Plan Acute hypoxic respiratory failure due to COVID19 Continue on oxygen, wean as able Decadron Convalescent plasma ordered, awaiting arrival, EUA discussed with patient by ER Lovenox MAT protocol IS Outside of window for remdesivir Procal 0.03, no indication for abx HTN Resume home meds Anxiety Start on hydroxyzine Requests to avoid anything addictive Hyperglycemia BS 210 on arrival, has been on steroids Fasting 114 this AM Trend Morbid obesity No acute needs, clinically significant DVt ppx: Lovenox Diagnosis/Problems Diagnosis/Problems (1) Essential (primary) hypertension (2) Anxiety (3) COVID-19 (4) Hypoxia (5) Hyperglycemia Status: Acute KATE VITAL MD Jul 18, 2020 10:41
[2020-07-18] MEDS ORDERED: guaiFENesin/DM (ROBITUSSIN DM) 10 ML UDC PO PRN (10:45)
[2020-07-18] MEDS ORDERED: MTP25TSR PO (16:38)
[2020-07-18] MEDS: hydrOXYzine (ATARAX) 10 MG TAB PO PRN (23:06)
[2020-07-18] MEDS: MELATONIN 3 MG TABLET PO PRN (23:06)
[2020-07-19] VITALS (8 sets, daily range): BP systolic 162–208; BP diastolic 72–102
[2020-07-19] MEDS: hydrALAZINE (APESOLINE) 20 MG/ML VIAL IV PRN ×2 (00:22→20:54)
--- NOTE | 2020-07-19 00:30 | NUR ---
This RN notified Dr. Vital at 0002 about this pt's BP being 197/87 st 1157. ordered hydrazaline 5mg PRN q4hr for systolic >190. Will administer and reassess pt, and continue to care for pt.
[2020-07-19] MEDS: NS IV 1000 ML 1,000 ML IV SCH ×2 (03:44→15:04)
[2020-07-19 06:08] LABS: CHLORIDE 110 MMOL/L (98-107); POTASSIUM 3.7 MMOL/L (3.6-5.0); SODIUM 142 MMOL/L (135-145)
[2020-07-19 06:09] LABS: CALCIUM 7.6 MG/DL (8.5-10.1); GLUCOSE 112 MG/DL (70-105)
[2020-07-19 06:11] LABS: CARBON DIOXIDE 24 MMOL/L (21-32)
[2020-07-19 06:13] LABS: CREATININE SERUM 0.61 MG/DL (0.60-1.30); GFR ESTIMATED > 60
[2020-07-19 06:14] LABS: BUN/CREATININE RATIO 13
[2020-07-19] MEDS: POTASSIUM CL 10MEQ/50ML IVPB 50 ML IV SCH (06:14)
[2020-07-19 06:15] LABS: MAGNESIUM 2.1 MG/DL (1.6-2.4)
[2020-07-19] MEDS: KCL 20 MEQ TAB (K-DUR) PO SCH (06:15)
[2020-07-19] MEDS: MAGNESIUM 1 GM/100 ML IVPB 100 ML IV SCH (06:16)
[2020-07-19] MEDS: dexAMETHasone 6 MG TAB (DECADRON) PO SCH (06:19)
[2020-07-19] MEDS: RT-ALBUTEROL INHALER HFA (VENTOLIN HFA) 18 GM IH SCH ×5 (07:09→22:11)
[2020-07-19] MEDS: ENOXAPARIN 40 MG/0.4 ML (LOVENOX) SYR SC SCH ×2 (09:57→20:58)
[2020-07-19] MEDS ORDERED: ESTR1TAB24 PO (12:20)
[2020-07-19] MEDS ORDERED: CHOL200059 PO (12:20)
[2020-07-19] MEDS ORDERED: CETI10TA49 PO (12:20)
[2020-07-19] MEDS ORDERED: ASCO500C17 PO (12:20)
[2020-07-19] MEDS ORDERED: MAGN400T39 PO (12:20)
[2020-07-19] MEDS ORDERED: POTA99TA21 PO (12:20)
[2020-07-19] MEDS ORDERED: PANT40TA52 PO (12:20)
[2020-07-19] MEDS ORDERED: CYAN250010 PO (12:20)
--- NOTE | 2020-07-19 12:23 | NUR ---
I SPOKE WITH THE PATIENT ON THE ROOM PHONE, CALLED [facility] AND WENT THROUGH THE EXTERNAL MED HISTORY TO COMPLETE THIS MED REC. PT SAYS THAT SHE TAKES FUROSEMIDE PRN BUT I COULD NOT SEE WHERE SHE TAKES IT AND FL[facility] SAID THAT THEY HAVEN'T FILLED IT FOR HER. THEREFORE I LEFT IT OFF OF THE MED REC. ESTRADIOL AND PROTONIX HAVEN'T BEEN FILLED SINCE 05/11/2020 #30/30DS. 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 OTC: MAGNESIUM POTASSIUM VITAMIN B12 VITAMIN D VITAMIN C
--- NOTE | 2020-07-19 14:08 | Progress Note - Hospitalist ---
Subjective HPI/CC On Admission Date Seen by Provider: Jul 19, 2020 Time Seen by Provider: 11:05 Pt is a 60yoCF with a PMH of HTN who presented to the ER due to weakness and shortness of breath. She states that her testedpositive for COVID on 07/04 after an exposure and work and she has been symptomatic since roughly 07/02 but really worsened over the last week. She was unable to take deep breaths and was so weak for couldn't even stand to take a shower. She tastes she lost her sense of taste as well. She has has sniffles,nasal congestion, and a sore throat as well. She ultimately was tested for COVID and was positive on 07/14. She was offered BAM but declined. She developed profound diarrhea and even some vomiting and felt she was getting dehydrated too. She has been unable to eat much over the last few days. This morning she reports feeling better. Breathing is easier but still on oxygen. She was also able to eat breakfast. Subjective/Events-last exam She is feeling a bit better today. She is not having any fevers. She is not having any shortness of breath. She has had a productive cough. She wants to take a shower. She has been up and moving around a little bit. She has been able to eat and drink. She has no other complaints or concerns. Focused Exam Lactate Level 07/17/20 16:45: Lactic Acid Level 2.15*H 07/17/20 20:20: Lactic Acid Level 1.76 Objective Exam Vital Signs Vital Signs Date Time Temp Pulse Resp B/P (MAP) Pulse Ox O2 Delivery O2 Flow Rate FiO2 07/19/20 12:31 61 07/19/20 12:11 36.0 92 30 07/19/20 10:43 Nasal Cannula 2.50 07/19/20 08:19 20 191/82 (118) Capillary Refill : Less Than 3 Seconds General Appearance: No Apparent Distress, Obese Respiratory: Lungs Clear, Normal Breath Sounds, No Respiratory Distress Cardiovascular: Regular Rate, Rhythm, No Murmur Gastrointestinal: Normal Bowel Sounds, Non Tender, Soft Extremity: Normal Inspection, Non Tender, Pedal Edema Neurologic/Psychiatric: Alert, Oriented x3, No Motor/Sensory Deficits, Normal Mood/Affect Skin: Normal Color, Warm/Dry Results/Procedures Lab Laboratory Tests 07/19/20 05:40 Patient resulted labs reviewed. Imaging: Reviewed Imaging Report Assessment/Plan Assessment and Plan Assess & Plan/Chief Complaint Acute respiratory failure due to COVID-19 Supplemental oxygen, weaning as able Decadron s/p convalescent plasma Lovenox HTN Continue home meds Anxiety Hydroxyzine Requests to avoid anything addictive Morbid obesity No acute needs, clinically significant DVt ppx: Lovenox Diagnosis/Problems Diagnosis/Problems (1) Acute respiratory failure due to COVID-19 Status: Acute (2) HTN (hypertension) Status: Chronic (3) Morbid obesity Status: Chronic (4) Anxiety Status: Acute GÓMEZ COTTER MD Jul 19, 2020 14:08
--- NOTE | 2020-07-19 15:30 | NUR ---
"RD ASSESSMENT PMHx: HTN; GERD; PT INTERACTION: Received dietary consult for MST score. Note pt is currently in COVID isolation per chart review. Note all diet information for nutrition consult is per Jorje RN or per chart review. Jorje states current appetite appears good. Note avg PO intake 70% x1d, per chart review. Jorje states no issues with n/v/c/d that he is aware of. Note last BM was 07/18, and pt not currently on bowel regimen per chart review. Note unable to determine recent wt hx, per chart review. Given wt hx and PO intake, pt is not at risk for malnutrition at this time. Est. kcal needs: 9698-9059 kcal | 15-18 kcal/kg Est. Pro needs: 103-129 g Pro | 0.8-1.0 g Pro/kg PES STATEMENT: Inadequate oral intake (NI-2.1) related to loss of appetite, as evidenced by chart review, and avg PO intake 70% x1d. INTERVENTION: Continue with current diet order of Regular diet. Will continue to follow and reassess as pt needs, intake, and status change. Amanda SUAZO, MS RD LD [phone] cell"
--- NOTE | 2020-07-19 18:38 | NUR ---
MESSAGED IN REGARDS TO IV FLUIDS, PATIENT WAS C/O FEELING BLOATED AND FREQUENT URINATION. RESPONDED BACK AND SAID TO STOP FLUIDS. WILL SALINE LOCK.
[2020-07-19] MEDS ORDERED: amLODIPine 5 MG (NORVASC) TAB PO ONE (20:00)
[2020-07-19] MEDS: MELATONIN 3 MG TABLET PO PRN (20:54)
[2020-07-19] MEDS: hydrOXYzine (ATARAX) 10 MG TAB PO PRN (20:54)
[2020-07-20] MEDS: RT-ALBUTEROL INHALER HFA (VENTOLIN HFA) 18 GM IH SCH ×3 (02:14→15:00)
[2020-07-20 05:00] VITALS: BP 177/78
[2020-07-20 06:20] LABS: CHLORIDE 109 MMOL/L (98-107); POTASSIUM 3.6 MMOL/L (3.6-5.0); SODIUM 141 MMOL/L (135-145)
[2020-07-20 06:22] LABS: GLUCOSE 114 MG/DL (70-105)
[2020-07-20] MEDS: KCL 20 MEQ TAB (K-DUR) PO SCH (06:22)
[2020-07-20] MEDS: POTASSIUM CL 10MEQ/50ML IVPB 50 ML IV SCH (06:22)
[2020-07-20 06:23] LABS: CARBON DIOXIDE 23 MMOL/L (21-32)
[2020-07-20 06:26] LABS: CREATININE SERUM 0.59 MG/DL (0.60-1.30); GFR ESTIMATED > 60
[2020-07-20 06:27] LABS: BUN/CREATININE RATIO 17
[2020-07-20] MEDS: MAGNESIUM 1 GM/100 ML IVPB 100 ML IV SCH (06:30)
[2020-07-20] MEDS ORDERED: KCL 20 MEQ TAB (K-DUR) PO SCH (07:00)
[2020-07-20] MEDS: dexAMETHasone 6 MG TAB (DECADRON) PO SCH (07:19)
[2020-07-20 08:38] VITALS: BP 151/68
[2020-07-20] MEDS ORDERED: amLODIPine 5 MG (NORVASC) TAB PO SCH (09:00)
[2020-07-20] MEDS: ENOXAPARIN 40 MG/0.4 ML (LOVENOX) SYR SC SCH (09:19)
[2020-07-20] MEDS ORDERED: HYDR-3584 PO (11:27)
[2020-07-20] MEDS ORDERED: ALPR0.5T PO (11:27)
[2020-07-20 12:00] VITALS: BP 181/77
--- NOTE | 2020-07-20 12:17 | Discharge Summary ---
Discharge Summary Hospital Course Was the Problem List Reviewed?: Yes Problems/Dx: (1) Acute respiratory failure due to COVID-19 Status: Acute (2) HTN (hypertension) Status: Chronic (3) Morbid obesity Status: Chronic (4) Anxiety Status: Acute Hospital Course Date of Admission: Jul 17, 2020 at 18:00 Admission Diagnosis : Family Physician/Provider: Nancy Wolf MD Date of Discharge: 07/20/20 Discharge Diagnosis: [ ] Hospital Course: [ ] Labs and Pending Lab Test: Laboratory Tests 07/19/20 13:21: Lab Scanned Report Transfusion Reaction Form 07/20/20 05:33: Sodium Level 141, Potassium Level 3.6, Chloride Level 109H, Carbon Dioxide Level 23, Anion Gap 9, Blood Urea Nitrogen 10, Creatinine 0.59L, Estimat Glomerular Filtration Rate > 60, BUN/Creatinine Ratio 17, Glucose Level 114H, Calcium Level 8.0L, Magnesium Level 2.0 Microbiology 07/17/20 Blood Culture - Preliminary, Resulted No growth Home Meds Active Xanax (Alprazolam) 0.5 Mg Tablet 0.5 Mg PO Q8H PRN 7 Days Hydroxyzine HCl 10 Mg Tablet 10 Mg PO TID PRN 30 Days Reported Zyrtec (Cetirizine HCl) 10 Mg Tablet 10 Mg PO BID Vitamin C (Ascorbic Acid) 500 Mg Capsule 500 Mg PO DAILY Vitamin D3 (Cholecalciferol (Vitamin D3)) 50 Mcg Tablet 50 Mcg PO DAILY Vitamin B12 (Cyanocobalamin (Vitamin B-12)) 2,500 Mcg Tablet 2,500 Mcg PO DAILY Potassium (Potassium Gluconate) 99 Mg Tablet 99 Mg PO Q48H Magnesium (Magnesium Oxide) 400 Mg Tablet 400 Mg PO Q48H Pantoprazole Sodium 40 Mg Tablet.dr 40 Mg PO DAILY LAST FILLED 05/11/2020 #30 30 DAY SUPPLY Estradiol Tablet (Estradiol) 1 Mg Tablet 1 Mg PO DAILY LAST FILLED 05/11/2020 #30 30 DAY SUPPLY Metoprolol Succinate 25 Mg Tab.er.24h 25 Mg PO DAILY Discharge Planning: <30 minutes discharge planning Discharge Instructions Discharge Diet: No Restrictions Activity as Tolerated: Yes Discharge Physical Examination Vital Signs Vital Signs Date Time Temp Pulse Resp B/P (MAP) Pulse Ox O2 Delivery O2 Flow Rate FiO2 07/20/20 08:38 36.1 81 16 151/68 (95) 91 Nasal Cannula 2.50 07/19/20 12:11 30 General Appearance: No Apparent Distress, Anxious, Obese Respiratory: Lungs Clear, Normal Breath Sounds, No Respiratory Distress Cardiovascular: Regular Rate, Rhythm, No Edema, No Murmur Gastrointestinal: Normal Bowel Sounds, Non Tender, Soft Extremity: Normal Inspection, Non Tender, No Pedal Edema Skin: Normal Color, Warm/Dry Neurologic/Psychiatric: Alert, Oriented x3, No Motor/Sensory Deficits, Normal Mood/Affect Allergies: Coded Allergies: Sulfa (Sulfonamide Antibiotics) (Verified Allergy, Unknown, 11/01/06) benazepril (Unverified Allergy, Unknown, SWELLING, 07/21/15) carbamazepine (Verified Allergy, Unknown, 11/01/06) cimetidine (Verified Allergy, Unknown, 11/01/06) codeine (Verified Allergy, Unknown, 11/01/06) enalapril (Unverified Allergy, Unknown, SWELLING, 07/21/15) metoprolol (Unverified Allergy, Unknown, SWELLING, RASH, 07/21/15) Discharge Summary Date of Admission Jul 17, 2020 at 18:00 Date of Discharge Discharge Date: Jul 20, 2020 Discharge Time: 12:13 Admission Diagnosis Acute hypoxic respiratory failure due to COVID19 Discharge Diagnosis Acute respiratory failure due to COVID-19 (1) Acute respiratory failure due to COVID-19 Status: Acute (2) HTN (hypertension) Status: Chronic (3) Morbid obesity Status: Chronic (4) Anxiety Status: Acute GÓMEZ COTTER MD Jul 20, 2020 12:17
--- NOTE | 2020-07-20 12:45 | NUR ---
O2 qualification. patient SpO2 84% @ rest on RA. Addendum: 07/20/20 at 1248 by ESTRELLA CORONADO RT Amended: Links added.
[2020-07-20 13:07] VITALS: BP 181/77
--- NOTE | 2020-07-20 14:53 | D/C HH Face to Face Order ---
D/C Face to Face Orders Reconcile Patient Problems Problems Reviewed?: Yes Instructions for Patient Via [facility] [employer] Patient Instructions/FollowUp: PCP in 1-2 weeks Physician to follow Patient: Nancy Wolf Discharge Diet for Home: No Restrictions Patient Data-Allergies,Ht & Wt Patient Allergies: Coded Allergies: Sulfa (Sulfonamide Antibiotics) (Verified Allergy, Unknown, 11/01/06) benazepril (Unverified Allergy, Unknown, SWELLING, 07/21/15) carbamazepine (Verified Allergy, Unknown, 11/01/06) cimetidine (Verified Allergy, Unknown, 11/01/06) codeine (Verified Allergy, Unknown, 11/01/06) enalapril (Unverified Allergy, Unknown, SWELLING, 07/21/15) metoprolol (Unverified Allergy, Unknown, SWELLING, RASH, 07/21/15) Height (Feet): 5 Height (Inches): 8.00 Weight (Pounds): 280 Weight (Ounces): 0.0 Home Health Need/Face to Face Date of Face to Face: Jul 20, 2020 Clinical Findings: Generalized weakness and fatigue, Muscle weakness, Shortness of breath I have seen Pt [id number]: Yes Discharged To: Home Diagnosis/Conditions: COVID-19 Debility Problems/Diagnosis/Condition: (1) Acute respiratory failure due to COVID-19 (2) Morbid obesity (3) Debility Patient is Homebound due to: Muscle weakness, Shortness of breath/distress Homebound Status Due to the above stated illness, injury or surgical procedure (medical condition or diagnosis) and associated clinical findings, the patient is homebound because of his/her inability to leave home except with aid of a supportive device and/or person AND leaving the home requires a considerable and taxing effort or is medically contraindicated. Pt req the following assistanc: Aid of another person Home Health Nursing Orders Home Health Services Order: Nursing Services, Space Operations-Evaluate & Treat, Physical Therapy-Evaluate & Treat Therapy Orders Therapy Orders: OT (must have SN or PT order), Physical Therapy Therapy Specific Orders: Eval assistive deivces, Teach enviro modifications/safety, Gait training, Increase strength/endurance Certify Stmt I certify that this patient is under my care and that I, a nurse practitioner or a physician; a therapist's assistant working with me, had a face to face encounter that - meets the physician face to face encounter requirements with this patient as dated. GÓMEZ COTTER MD Jul 20, 2020 14:53
[2020-07-20 15:45] VITALS: BP 181/77
--- NOTE | 2020-07-20 16:02 | NUR ---
CM/SS: Telephone call to [facility] - [phone] - they have received the referral and report that they can make home visit to see pt on Sunday07/23/20.
--- NOTE | 2020-07-20 16:06 | NUR ---
CM/SS: Telephone call to pt. She has questions about COVID relief and if she were to have difficulty in paying her bill. She is given information as to the phone number on her bill, should she need assistance. Pt is also informed that [facility] will be getting in touch with her and that they will plan to make a home visit on July 23. Pt is ok with that at this time.
[2020-07-21] MEDS ORDERED: amLODIPine 10 MG (NORVASC) TAB PO SCH (09:00)
== END 2020-07-20 17:10 | disposition home health service (06) | DRG 177 ==
LOC: EDUNIT# 16:29 → ER 16:34 → 4TH 18:00
PROVIDERS: ADMIT Family Medicine; ATTEND Internal Medicine
PROC: XW13325 Transfusion of Convalescent Plasma (Nonautologous) into Peripheral Vein, Percutaneous Approach, New Technology Group 5 (ICD-10-PCS; principal; 2020-07-18)
DX: U07.1 COVID-19 (principal); J96.01 Acute respiratory failure with hypoxia; Z68.41 Body mass index [BMI] 40.0-44.9, adult; J43.9 Emphysema, unspecified; I10 Essential (primary) hypertension; E66.01 Morbid (severe) obesity due to excess calories; K21.9 Gastro-esophageal reflux disease without esophagitis; M19.91 Primary osteoarthritis, unspecified site; R73.9 Hyperglycemia, unspecified; R19.7 Diarrhea, unspecified; F41.9 Anxiety disorder, unspecified; Z87.891 Personal history of nicotine dependence; Z73.0 Burn-out; Z88.6 Allergy status to analgesic agent; Z88.2 Allergy status to sulfonamides
CPT/HCPCS: 36415; 71045; 80048; 80053; 83605; 83735; 84145; 85025; 85379; 86141; 86900; 86901; 87040; 93005; 94640; 94664; 94760; 96360

== ENCOUNTER 2020-07-22 14:11 | Emergency (ER) | payer BC ==
[~2020-07-22] VITALS: Ht 173 cm; Wt 128.8 kg
[~2020-07-22 14:11] MED LIST changes: +ALPR0.5T PO; +ASCO500C17 PO; +CETI10TA49 PO; +CHOL200059 PO; +CYAN250010 PO; +HYDR-3584 PO; +MAGN400T39 PO; +MTP25TSR PO; +PANT40TA52 PO; +POTA99TA21 PO
--- NOTE | 2020-07-22 15:30 | Diagnostic Imaging Report ---
INDICATION: Hypoxia, Covid infection. EXAMINATION: Frontal chest was obtained at 3:20 p.m. COMPARISON: 07/17/2020. FINDINGS: There is cardiomegaly. There is central vascular congestion. There are worsening peripheral infiltrates throughout both lungs suspicious for a Covid pneumonia given the patient's history. There is no pneumothorax or pleural fluid. IMPRESSION: Cardiomegaly and central vascular congestion. Worsening peripheral infiltrates throughout both lungs suspicious for Covid pneumonia. Dictated by: Dictated on workstation # [id number]
--- NOTE | 2020-07-22 15:53 | ED Respiratory ---
General Chief Complaint: Respiratory Problems Stated Complaint: LOW O2,COVID + Nursing Triage Note: PT WAS RELEASED FROM A COUPLE DAYS AGO WITH COVID 19, HOME HEALTH CAME BY TODAY FOR THEIR FIRST VISIT AND RECOMMENDED PT COME TO THE ER. PT STATES SHE GETS SOB WHEN UP AND MOVING BUT HER SATS GO UP WHEN SHE SITS DOWN. STATES SHE FEELS BETTER NOW THAN WHEN SHE WAS DISCHARGED. JUST WEAK FROM SITTING AROUND. IS ONLY HERE BECAUSE HOME HEALTH TOLD HER TO COME. Source: patient Exam Limitations: no limitations History of Present Illness Date Seen by Provider: Jul 22, 2020 Time Seen by Provider: 15:15 Initial Comments Patient is a 60-year-old female with a history of Covid pneumonia who presents to the emergency room with reported low oxygen saturations. Patient states her home health nurse was at the house today and noted that her blood oxygen levels on her pulse ox that she wears on her finger were down in the 80s. Patient states that she feels great. She states that since she has been home she is actually gotten more energy she feels improved, she is not having diarrhea anymore. She states the cough is better. She states she feels like the cough is breaking up a little bit more. She is coughing up some yellowish phlegm. Patient states that she is able to get up and do light activity around the house wearing her 3 L of oxygen per nasal cannula. She states she will dip with too much exertion down into the upper 80s but when she rests her oxygen pops right back up to 93 to 95%. Patient states that she feels like the home health nurse was a little bit overly concerned but she decided to come into the emergency room because "better safe than sorry". No recent fevers or chills. The patient states again that she feels much better than even when she was discharged a couple of days ago. She had a 4-day hospital stay in total for her Covid pneumonia at presentation. All other review of' systems reviewed and negative except as stated. Timing/Duration: just prior to arrival Severity: mild Prior Episodes/Possible Cause: illness exposure Modifying Factors: Improves With Oxygen, Improves With Rest Associated Symptoms: shortness of breath (Mild) Allergies and Home Medications Allergies Coded Allergies: Sulfa (Sulfonamide Antibiotics) (Verified Allergy, Unknown, 11/01/06) benazepril (Unverified Allergy, Unknown, SWELLING, 07/21/15) carbamazepine (Verified Allergy, Unknown, 11/01/06) cimetidine (Verified Allergy, Unknown, 11/01/06) codeine (Verified Allergy, Unknown, 11/01/06) enalapril (Unverified Allergy, Unknown, SWELLING, 07/21/15) metoprolol (Unverified Allergy, Unknown, SWELLING, RASH, 07/21/15) Home Medications Alprazolam 0.5 Mg Tablet, 0.5 MG PO Q8H PRN for PANIC ATTACKS Prescribed by: GÓMEZ COTTER on 07/20/20 1127 Ascorbic Acid 500 Mg Capsule, 500 MG PO DAILY, (Reported) Cetirizine HCl 10 Mg Tablet, 10 MG PO BID, (Reported) Cholecalciferol (Vitamin D3) 50 Mcg Tablet, 50 MCG PO DAILY, (Reported) Cyanocobalamin (Vitamin B-12) 2,500 Mcg Tablet, 2,500 MCG PO DAILY, (Reported) Estradiol 1 Mg Tablet, 1 MG PO DAILY, (Reported) LAST FILLED 05/11/2020 #30 30 DAY SUPPLY Hydroxyzine HCl 10 Mg Tablet, 10 MG PO TID PRN for anxiety Prescribed by: GÓMEZ COTTER on 07/20/20 1127 Magnesium Oxide 400 Mg Tablet, 400 MG PO Q48H, (Reported) Metoprolol Succinate 25 Mg Tab.er.24h, 25 MG PO DAILY, (Reported) Pantoprazole Sodium 40 Mg Tablet.dr, 40 MG PO DAILY, (Reported) LAST FILLED 05/11/2020 #30 30 DAY SUPPLY Potassium Gluconate 99 Mg Tablet, 99 MG PO Q48H, (Reported) Patient Home Medication List Home Medication List Reviewed: Yes Review of Systems Review of Systems Constitutional: see HPI EENTM: no symptoms reported Respiratory: cough, dyspnea on exertion Cardiovascular: no symptoms reported Gastrointestinal: no symptoms reported Genitourinary: no symptoms reported Musculoskeletal: no symptoms reported Skin: no symptoms reported Past Cgfnwsm-Yusvca-Chveur Hx Patient Social History Alcohol Use: Denies Use Type Used: Cigarettes Former Smoker, Quit: Dec 18, 1999 Recent Infectious Disease Expo: Yes Recent Hopitalizations: Yes (COVID 07/2020) Immunizations Up To Date Tetanus Booster (TDap): Unknown Past Medical History Surgeries: Yes (r/l knee, colon) Bladder Surgery, Eye Surgery, Hysterectomy, Orthopedic, Tubal Ligation Respiratory: Yes Emphysema Cardiac: Yes Hypertension Neurological: No Reproductive Disorders: No Sexually Transmitted Disease: No Genitourinary: No Gastrointestinal: Yes Gastroesophageal Reflux Musculoskeletal: Yes Arthritis Endocrine: No Cancer: No Psychosocial: No Integumentary: No Blood Disorders: No Adverse Reaction/Blood Tranf: No Family Medical History No Pertinent Family Hx Physical Exam Vital Signs - First Documented 07/22/20 14:36 Temp 36.6 Pulse 75 Resp 20 B/P (MAP) 138/76 (96) Pulse Ox 94 O2 Delivery Nasal Cannula O2 Flow Rate 3.00 Capillary Refill : Less Than 3 Seconds Height: 5'8.00" Weight: 280lbs. 0.0oz. 127.350478uo; 43.00 BMI Method:Stated General Appearance: WD/WN, no apparent distress HEENT: PERRL/EOMI Respiratory: no respiratory distress, no accessory muscle use, other (Scattered crackles at the bilateral bases) Cardiovascular: regular rate, rhythm Gastrointestinal: normal bowel sounds, non tender, soft Neurologic/Psychiatric: alert, normal mood/affect, oriented x 3 Skin: normal color, warm/dry Progress/Results/Core Measures Suspected Sepsis Recent Fever Within 48 Hours: No Infection Criteria Present: Documented Infection New/Unexplained Altered Menta: No Sepsis Screen: No Definite Risk SIRS Temperature: Pulse: 75 Respiratory Rate: 20 Blood Pressure 138 /76 Mean: 96 Results/Orders My Orders Orders - KAROLINE BELL MD Chest 1 View, Ap/Pa Only (07/22/20 15:01) Vital Signs/I&O 07/22/20 14:36 Temp 36.6 Pulse 75 Resp 20 B/P (MAP) 138/76 (96) Pulse Ox 94 O2 Delivery Nasal Cannula O2 Flow Rate 3.00 Capillary Refill : Less Than 3 Seconds Blood Pressure Mean: 96 Progress Note : Time: 15:51 Progress Note Reevaluated the patient she is resting comfortably satting 91 to 93% on her 3 L of home O2. Patient states that she feels better than she has felt in a long time. She states that she still has some difficulty in moving around and after ambulation and states that her oxygen will drop a little bit but when she sits down and rests her oxygen pops right back up. Patient states that her energy is coming back her appetite is coming back. She is no longer having diarrhea she feels much better. Even though her chest x-ray shows worsening bilateral pulmonary infiltrates because her oxygen looks good on her 3 L I am going to go ahead and send her home. I have cautioned her and counseled her on keeping a close eye on her oxygen saturations via her home O2 monitor. She verbalizes understanding of this and will keep a close eye on her saturations. I have advised her that if she should drop below 90 and stay consistently there that she needs to come back to the hospital. She is agreeable with this plan of care. All questions were sought and answered and she is stable for discharge. Diagnostic Imaging Diagonstic Imaging: Xray Plain Films/CT/US/NM/MRI: chest Comments [facility], [place] NAME: YIFAN KELLER [facility] REC#: [id number] PT STATUS: REG ER : 1960 PHYSICIAN: KAROLINE BELL MD ADMIT DATE: 07/22/20/ER Draft Date of Exam:07/22/20 CHEST 1 VIEW, AP/PA ONLY INDICATION: Hypoxia, Covid infection. EXAMINATION: Frontal chest was obtained at 3:20 p.m. COMPARISON: 07/17/2020. FINDINGS: There is cardiomegaly. There is central vascular congestion. There are worsening peripheral infiltrates throughout both lungs suspicious for a Covid pneumonia given the patient's history. There is no pneumothorax or pleural fluid. IMPRESSION: Cardiomegaly and central vascular congestion. Worsening peripheral infiltrates throughout both lungs suspicious for Covid pneumonia. Dictated on workstation # [id number] Dict: 07/22/20 1527 Trans: 07/22/20 1530 [facility] [id number] Interpreted by: TALON MUSE MD Electronically signed by: Departure Impression Primary Impression: Pneumonia due to COVID-19 virus Disposition: HOME, SELF-CARE Condition: Stable Departure-Patient Inst. Decision time for Depature: 16:11 Referrals: JOE BRAY MD (PCP/Family) Primary Care Physician Patient Instructions: Coronavirus Disease 2019 (COVID-19) (DC) Add. Discharge Instructions: Continue to wear your oxygen at 3 L per nasal cannula. Continue to do your breathing exercises at home. Light activity is completely okay. Please monitor your oxygen saturations very closely and if they stay below 90 even at rest please come back to the emergency department for reevaluation. Copy Copies To 1: JOE BRAY MD, KATHRYN M MD Jul 22, 2020 15:53
[2020-07-22 16:25] VITALS: BP 126/72
== END 2020-07-22 16:25 | disposition home or self-care (01) ==
LOC: EDUNIT# 14:11 → ER 14:13
DX: U07.1 COVID-19 (principal); J12.82 Pneumonia due to coronavirus disease 2019; I10 Essential (primary) hypertension; K21.9 Gastro-esophageal reflux disease without esophagitis; Z87.891 Personal history of nicotine dependence; Z88.2 Allergy status to sulfonamides; Z88.5 Allergy status to narcotic agent; Z88.8 Allergy status to other drugs, medicaments and biological substances
CPT/HCPCS: 71045

== ENCOUNTER → 2022-05-22 | Outpatient (CLI) | payer BC ==
[~2022-05-22] MED LIST changes: -POTA99TA21 PO; +POTA99TA26 PO
== END ==
LOC: CARD 10:55
PROVIDERS: ATTEND Internal Medicine Cardiovascular Disease
DX: I11.9 Hypertensive heart disease without heart failure (principal); I35.1 Nonrheumatic aortic (valve) insufficiency; I25.10 Atherosclerotic heart disease of native coronary artery without angina pectoris
CPT/HCPCS: 93306